=== PATIENT | male | born 1940 | race Caucasian/White ===

== ENCOUNTER 2017-01-05 15:07 | Inpatient (IN) | payer OTHER, MEDICARE ==
[~2017-01-05] VITALS: Ht 177.8 cm; Wt 88.0 kg
[2017-01-05 15:10] VITALS: BP 131/89; PULSE 113; RESP 18; TEMP 97.9; O2SAT 94
--- NOTE | 2017-01-05 15:27 | NUR ---
Patient to ER bed 4 to gown for evaluation. Side rails up. Report given to SHELBY HOPKINS.
--- NOTE | 2017-01-05 15:30 | NUR ---
Pt presents to ED c/o SOB h/o stent placement x 5 weeks ago.Pt released approximately 1 month ago.Pt h/o htn,hyperidemia,chf and afib.
[2017-01-05] MEDS ORDERED: METO25TA3 PO (15:32)
[2017-01-05] MEDS ORDERED: LOSA100T11 PO (15:32)
[2017-01-05] MEDS ORDERED: CELE200C PO (15:32)
[2017-01-05] MEDS ORDERED: ASPI-1063 PO (15:32)
[2017-01-05] MEDS ORDERED: LIP40 PO (15:32)
[2017-01-05] MEDS ORDERED: TRIA10.8 NS (15:32)
[2017-01-05] MEDS ORDERED: CLON0.5T4 PO (15:32)
[2017-01-05] MEDS ORDERED: WARF3TAB PO (15:32)
[2017-01-05] MEDS ORDERED: GABA-529 PO (15:32)
[2017-01-05] MEDS ORDERED: HYDR-1189 PO (15:32)
[2017-01-05] MEDS ORDERED: SENN-104 PO (15:32)
[2017-01-05] MEDS ORDERED: AMIO400T5 PO (15:32)
--- NOTE | 2017-01-05 15:32 | NUR ---
Medication reconciliation completed based upon list provided by patient.
--- NOTE | 2017-01-05 15:35 | NUR ---
# 20gauge angiocath placed to LFA. Use of asceptic technique. Opsite placed over site. Blood return noted. Flushed with 10 cc of normal saline. No evidence of infiltration noted. Patient tolerated well.
[2017-01-05] MEDS ORDERED: ALBUTEROL SULFATE 0.083% 2.5 MG/3 ML VIAL.NEB IH ONE (15:45)
[2017-01-05] MEDS ORDERED: ASPIRIN 325 MG TABLET PO ONE (15:45)
[2017-01-05] MEDS ORDERED: FUROSEMIDE 100 MG/10 ML VIAL IVP ONE (15:45)
[2017-01-05] MEDS ORDERED: IPRATROPIUM BROM 0.5 MG/2.5 ML VIAL.NEB (ATROVENT) IH ONE (15:45)
[2017-01-05 15:46] LABS: ANION GAP 5 (5-15); CHLORIDE 105 mmol/L (98-107); CREATININE 1.46 mg/dL (0.55-1.30); GLUCOSE 117 mg/dL (70-99); POTASSIUM 4.8 mmol/L (3.5-5.1); SODIUM SERUM 137 mmol/L (136-145); UREA NITROGEN, BLOOD 18 mg/dL (8-21)
[2017-01-05 15:52] LABS: BASOPHILS % (AUTO) 0.4 % (0.0-2.0); EOSINOPHILS # (AUTO) 0.2 K/uL (0.0-0.4); EOSINOPHILS % (AUTO) 2.3 % (0.0-4.0); HEMATOCRIT 31.8 % (36-54); HEMOGLOBIN 10.7 g/dL (14.0-18.0); LYMPHOCYTES # (AUTO) 1.2 K/uL (1.0-5.5); LYMPHOCYTES % (AUTO) 17.5 % (20.5-51.5); MEAN CORPUSCULAR HEMOGLOBIN 29 pg (27-31); MEAN CORPUSCULAR HGB CONC 34 % (32-36); MEAN CORPUSCULAR VOLUME 85 fL (79.0-98.0); MONOCYTES # (AUTO) 0.6 K/uL (0.0-1.0); MONOCYTES % (AUTO) 8.2 % (1.7-9.3); NEUTROPHILS # (AUTO) 4.8 K/uL (1.8-7.7); NEUTROPHILS % (AUTO) 71.6 % (40.0-70.0); PLATELET COUNT (AUTO) 180 K/uL (130-430); RED BLOOD CELL COUNT(AUTO) 3.76 MIL/uL (4.2-6.2); WHITE BLOOD COUNT (AUTO) 6.8 K/uL (4.8-10.8)
[2017-01-05 15:56] LABS: ALANINE AMINOTRANSFERASE 53 U/L (12-78); ALBUMIN 3.7 g/dL (3.4-4.8); ASPARTATE AMINOTRANSFERASE 34 U/L (10-37); TOTAL BILIRUBIN 0.9 mg/dL (0.0-1.0); TOTAL PROTEIN, SERUM 7.4 g/dL (6.4-8.3)
[2017-01-05 16:09] LABS: INR 2.9 (0.80-1.20); PROTHROMBIN TIME 32.4 SECS (9.5-12.5)
--- NOTE | 2017-01-05 16:27 | NUR ---
pt tolerated breathing tx well.Pt reports ease in resp effort.Marked improvement from prior to tx.
[2017-01-05] MEDS ORDERED: DILTIAZEM HCL 25 MG/5 ML VIAL IVP ONE (17:15)
--- NOTE | 2017-01-05 17:25 | NUR ---
pt medicated for tachycardia.Pt tolerated well.Continuing to monitor
--- NOTE | 2017-01-05 17:30 | NUR ---
Pt has approximately 800cc output after Lasix.
--- NOTE | 2017-01-05 17:45 | NUR ---
Spoke to Dr. Porras regarding stat consult.
--- NOTE | 2017-01-05 17:50 | NUR ---
Dr. Perez at bedside for evalaution.
--- NOTE | 2017-01-05 18:00 | NUR ---
Pt in sinus rhytm.NO resp distress noted.
--- NOTE | 2017-01-05 18:25 | NUR ---
Patient will be admitted to care of . Admitted to telemetry unit. Will go to room 135. Summary report printed. Report given to Admission RN.
--- NOTE | 2017-01-05 18:27 | NUR ---
ADMIT NOTE Received pt from ER to the floor with a diagnosis of CHF . Admission process initiated. patient oriented to pain management, safety and call light-teach back done.
[2017-01-05 18:36] VITALS: BP 123/80; PULSE 65; RESP 18; TEMP 98.8; O2SAT 94
[2017-01-05 19:00] VITALS: BP 104/69; PULSE 69; RESP 16; TEMP 97.7; O2SAT 98
--- NOTE | 2017-01-05 19:10 | NUR ---
closing notes pt sable.denies c/o of shortness of breath or chest pain. not in acute distress. at bed side. call light with in reach. report given to jarrod RYAN
--- NOTE | 2017-01-05 19:15 | NUR ---
change of shift.initial pt.assessment.pt.presents stable status.pt.is stable @room air no sob noted.iv access;lock.
--- NOTE | 2017-01-05 19:16 | NUR ---
CONSULTATION PAGED REASON FOR CONSULTATION:CARDIAC WAS CONSULT CALLED?Y PERSON WHO WAS NOTIFIED:JORDAN CONSULTING PHYSICIAN:LANDON TELLEZ CASH POSTER SPECIALTY:CARDIO CASH POSTER PHONE NUMBER:[phone]
[2017-01-05 20:00] VITALS: BP 104/69; PULSE 69; RESP 16; TEMP 97.7; O2SAT 98
--- NOTE | 2017-01-05 20:00 | NUR ---
pt.assessed.v/s assessed.values w/in normal limits.no pain,nausea manifested.pt.presents w/ c=pap apparatus from home: 2 f/u re;clearance.call light w/in pt;s each.i apprised pt.of the availability of snacks.pt.requested any items.call light w/in pt's reach.
[2017-01-05 20:12] VITALS: BP 123/80; PULSE 65
--- NOTE | 2017-01-05 20:58 | NUR ---
PAGED PAGED NASRA HUITRON AT [phone] SPOKE WITH DUY.
[2017-01-05] MEDS ORDERED: METOPROLOL SUCCINATE 25 MG TAB.SR.24H (TOPROL XL) PO STA (21:23)
[2017-01-05] MEDS ORDERED: METOPROLOL TARTRATE 25 MG TABLET PO ONE (21:30)
[2017-01-05] MEDS ORDERED: IPRATROPIUM/ALBUTEROL SULFATE 3 ML AMPUL.NEB INH PRN (21:30)
--- NOTE | 2017-01-05 22:00 | NUR ---
has assessed the pt.present upon the unit.lester hilliard is curently ordering pt's medications/c-pap. call light w/in pt's reach.
[2017-01-05] MEDS: HYDROcodone/ACETAMIN 5-325 MG TAB (NORCO/ VICODIN) PO PRN (22:19)
[2017-01-05] MEDS: GABAPENTIN 100 MG CAPSULE PO SCH (23:38)
[2017-01-06] VITALS (9 sets, daily range): BP systolic 110–135; BP diastolic 65–79; PULSE 62–137; RESP 16–18; TEMP 97.3–98.7; O2SAT 93–98
--- NOTE | 2017-01-06 | NUR ---
pt.assessed.pt.presents quiescent affect;calm,asleep.call light w/in pt's reach. Addendum: 01/06/17 at 0337 by Asad Flores RN v/s assessed.values w/in normal limits.
--- NOTE | 2017-01-06 02:00 | NUR ---
pt.assessed.pt.presents quiescent affect;calm,asleep.no distres/discomfort manifested. call light w/in pt's reach.
--- NOTE | 2017-01-06 04:00 | NUR ---
pt.assessed.v/s assessed.pt.presents stable status.no c/o pain,nausea.c-pap present. call light w/in pt's reach.
--- NOTE | 2017-01-06 06:00 | NUR ---
pt.assessed.pt.requesting medication;pain.norco reviewed:norco:45/325mg bid.i apprised the pt. pt.stated he requires the medication.pt.is due @1000am.i placed telephon call 2 .
--- NOTE | 2017-01-06 06:45 | NUR ---
returned the call.i apprised of the pt's request:pain medication.and the scheduled dose 4 the pt. bid. ordered norco:5/325mg:q-6hrs prn.i apprised the pt.of the recent order.
[2017-01-06 07:03] LABS: INR 2.7 (0.80-1.20)
[2017-01-06 07:15] LABS: BASOPHILS % (AUTO) 0.4 % (0.0-2.0); EOSINOPHILS # (AUTO) 0.4 K/uL (0.0-0.4); EOSINOPHILS % (AUTO) 6.5 % (0.0-4.0); HEMOGLOBIN 10.1 g/dL (14.0-18.0); LYMPHOCYTES # (AUTO) 1.4 K/uL (1.0-5.5); LYMPHOCYTES % (AUTO) 21.4 % (20.5-51.5); MEAN CORPUSCULAR HEMOGLOBIN 28 pg (27-31); MEAN CORPUSCULAR HGB CONC 34 % (32-36); MEAN CORPUSCULAR VOLUME 84 fL (79.0-98.0); MONOCYTES # (AUTO) 0.7 K/uL (0.0-1.0); MONOCYTES % (AUTO) 10.7 % (1.7-9.3); NEUTROPHILS # (AUTO) 3.9 K/uL (1.8-7.7); PLATELET COUNT (AUTO) 169 K/uL (130-430); RED BLOOD CELL COUNT(AUTO) 3.57 MIL/uL (4.2-6.2); RED CELL DISTRIBUTION WIDTH 16.2 % (9.0-15.0); WHITE BLOOD COUNT (AUTO) 6.4 K/uL (4.8-10.8)
[2017-01-06] MEDS: HYDROcodone/ACETAMIN 5-325 MG TAB (NORCO/ VICODIN) PO PRN ×3 (07:18→20:37)
[2017-01-06 07:20] LABS: PROTHROMBIN TIME 30.6 SECS (9.5-12.5)
[2017-01-06 07:28] LABS: ALANINE AMINOTRANSFERASE 45 U/L (12-78); ALBUMIN 3.3 g/dL (3.4-4.8); ANION GAP 9 (5-15); ASPARTATE AMINOTRANSFERASE 26 U/L (10-37); CHLORIDE 104 mmol/L (98-107); CREATININE 1.29 mg/dL (0.55-1.30); GLUCOSE 87 mg/dL (70-99); POTASSIUM 4.2 mmol/L (3.5-5.1); SODIUM SERUM 139 mmol/L (136-145); THYROID STIMULATING HORMONE 1.05 uIu/mL (0.34-4.82); TOTAL BILIRUBIN 0.9 mg/dL (0.0-1.0); TOTAL PROTEIN, SERUM 6.9 g/dL (6.4-8.3); UREA NITROGEN, BLOOD 15 mg/dL (8-21)
--- NOTE | 2017-01-06 07:30 | NUR ---
Initial Note Received pt in bed, no s/s of distress or sob noted, pt has no c/o pain at this time, pt in stable condition, pt aaox4, verbal. Bed at lowest position, call light within reach, will continue to monitor pt for any changes, fall precautions in place.
--- NOTE | 2017-01-06 07:30 | NUR ---
ROUNDS Dr Perez making her rounds, aware of patients condition. Per md Dr James to see pt due to increased heart rate and possible d/c today if cleared by him. Addendum: 01/06/17 at 0850 by Bibi Moreno RN note for 0830
[2017-01-06] MEDS: PANTOPRAZOLE SODIUM 40 MG TAB PO SCH (08:16)
[2017-01-06] MEDS: ATORVASTATIN 20 MG TABLET PO SCH (08:17)
[2017-01-06] MEDS: CELECOXIB 200 MG CAPSULE PO SCH (08:17)
[2017-01-06] MEDS: GABAPENTIN 100 MG CAPSULE PO SCH (08:17)
[2017-01-06] MEDS: SENNOSIDES/DOCUSATE SODIUM 1 TAB TABLET(SENOKOT-S) PO SCH (08:17)
[2017-01-06] MEDS: AMIODARONE HCL 200 MG TABLET PO SCH (08:19)
[2017-01-06] MEDS: ASPIRIN 81 MG TABLET(ECOTRIN) PO SCH (08:20)
[2017-01-06] MEDS: LOSARTAN POTASSIUM 50 MG TABLET (COZAAR) PO SCH (08:20)
--- NOTE | 2017-01-06 08:45 | NUR ---
MD ROUNDS Dr James making his rounds, aware of patients condition, spoke with md in regards to d/c due to high heart rate, md stated he will see pt.
[2017-01-06] MEDS ORDERED: clonazePAM 0.5 MG TABLET PO PRN (09:00)
[2017-01-06] MEDS ORDERED: CELECOXIB 200 MG CAPSULE PO SCH (09:00)
[2017-01-06] MEDS ORDERED: FUROSEMIDE 40 MG TABLET PO SCH (09:00)
[2017-01-06] MEDS ORDERED: METOPROLOL SUCCINATE 25 MG TAB.SR.24H (TOPROL XL) PO SCH ×2 (09:00)
[2017-01-06] MEDS ORDERED: clonazePAM 0.5 MG TABLET PO SCH (09:00)
[2017-01-06] MEDS ORDERED: FUROSEMIDE 20 MG/2 ML VIAL IVP ONE (09:15)
--- NOTE | 2017-01-06 09:45 | NUR ---
Suture Removal Removed three green string sutures on abd, all intact, no bleeding noted, noted scabbing on all three sites. Will continue to monitor pt for any changes.
--- NOTE | 2017-01-06 10:01 | NUR ---
Rounds Pt in bed, no s/s of distress or sob noted, pt has no c/o pain at this time, pt in stable condition, will continue to monitor pt for any changes, resting comfortably.
[2017-01-06] MEDS: WARFARIN SODIUM 3 MG TABLET PO SCH (18:00)
--- NOTE | 2017-01-06 18:26 | NUR ---
Closing Note Pt in bed, no s/s of distress or sob noted, pt has no c/o pain at this time, pt in stable condition, pt aaox4, verbal. Bed at lowest position, call light within reach, will endorse care of pt to incoming nurse, fall precautions in place.
--- NOTE | 2017-01-06 19:42 | NUR ---
Rounds Received patient sitting at the edge of the bed resting, denies of any pain, no acute distress noted. IV site checked intact and patent on saline lock. Instructed patient to call nurse when getting out of bed, call light within reach.
[2017-01-06] MEDS ORDERED: DOCUSATE SODIUM 250 MG CAPSULE PO ONE (20:30)
[2017-01-06] MEDS: CARVEDILOL 12.5 MG TABLET (COREG) PO SCH (20:33)
--- NOTE | 2017-01-06 22:19 | NUR ---
Rounds Patient resting and watching tv, pain medication given with effective result noted. call light within reach.
[2017-01-07] VITALS (7 sets, daily range): BP systolic 101–132; BP diastolic 65–78; PULSE 96–113; RESP 18–21; TEMP 96.4–98.3; O2SAT 96–97; Ht 177.8 cm; Wt 88.0 kg
--- NOTE | 2017-01-07 00:20 | NUR ---
Rounds Patient resting quietly, no s/s of any pain, no acute distress noted. call light within reach.
[2017-01-07] MEDS: HYDROcodone/ACETAMIN 5-325 MG TAB (NORCO/ VICODIN) PO PRN ×3 (05:40→22:23)
--- NOTE | 2017-01-07 07:29 | NUR ---
Closing notes Patient slept most of the night, no other changes noted on patient current condition.
[2017-01-07 07:30] LABS: INR 2.3 (0.80-1.20); PROTHROMBIN TIME 25.7 SECS (9.5-12.5)
[2017-01-07 07:33] LABS: ANION GAP 7 (5-15); CALCIUM 9.1 mg/dL (8.4-11.0); CHLORIDE 103 mmol/L (98-107); GLUCOSE 103 mg/dL (70-99); POTASSIUM 4.8 mmol/L (3.5-5.1); SODIUM SERUM 138 mmol/L (136-145); UREA NITROGEN, BLOOD 17 mg/dL (8-21)
--- NOTE | 2017-01-07 08:00 | NUR ---
Routine Patient sitting on side of bed, eating breakfast. No acute distress noted. Patient stable.
[2017-01-07] MEDS: ASPIRIN 81 MG TABLET(ECOTRIN) PO SCH (08:55)
[2017-01-07] MEDS: GABAPENTIN 100 MG CAPSULE PO SCH (08:56)
[2017-01-07] MEDS: ATORVASTATIN 20 MG TABLET PO SCH (08:56)
[2017-01-07] MEDS: CARVEDILOL 12.5 MG TABLET (COREG) PO SCH ×2 (08:56→20:45)
[2017-01-07] MEDS: SENNOSIDES/DOCUSATE SODIUM 1 TAB TABLET(SENOKOT-S) PO SCH (08:56)
[2017-01-07] MEDS: PANTOPRAZOLE SODIUM 40 MG TAB PO SCH (08:56)
[2017-01-07] MEDS: AMIODARONE HCL 200 MG TABLET PO SCH (08:57)
[2017-01-07] MEDS: LOSARTAN POTASSIUM 50 MG TABLET (COZAAR) PO SCH (08:58)
--- NOTE | 2017-01-07 09:00 | NUR ---
Routine Scheduled medications given per order. Patient sitting in bed with no acute distress. Patient stable at this time.
[2017-01-07] MEDS ORDERED: FUROSEMIDE 40 MG TABLET PO ONE (10:45)
--- NOTE | 2017-01-07 11:20 | NUR ---
Dr. Perez at bedside. Patient stable.
--- NOTE | 2017-01-07 12:20 | NUR ---
Routine Scheduled medications given per order. Patient resting in bed with no complaint of pain at this time. Patient stable.
[2017-01-07] MEDS: CELECOXIB 200 MG CAPSULE PO SCH (12:21)
[2017-01-07] MEDS ORDERED: CARVEDILOL 6.25 MG TABLET (COREG) PO ONE (12:30)
--- NOTE | 2017-01-07 13:47 | NUR ---
Routine Ordered med given. Patient resting comfortably in bed. Stable at this time.
--- NOTE | 2017-01-07 15:32 | NUR ---
Routine Patient complained of 5/10 pain in right upper extremity, hand and fingers. Due pain med given per order. Patient stable.
[2017-01-07] MEDS: WARFARIN SODIUM 3 MG TABLET PO SCH (18:50)
--- NOTE | 2017-01-07 18:50 | NUR ---
Routine Schedule med given per order. Patient resting comfortably in bed with at bedside. Patient stable throughout shift.
--- NOTE | 2017-01-07 19:35 | NUR ---
Initial Notes Pt is A/Ox4. Patient is pleasant and cooperative. Damaris is at bedside. Plan of care discussed with patient and at bedside, both verbalized understanding. Goal for the night discussed with pt and pt verbalized that he would like to get good sleep and to control his pain to his left arm. All scheduled medications discussed with pt and side effects as well. Pt denies any pain or sob at this time. Breathing is even and unlabored, lung sounds clear. IV intact. VSS. Dry scabs x3 noted to abdomen. Healed incision noted to mid upper chest. CPAP at bedside, pt stated he is able to place it on himself without assistance, pt encouraged to call for help as needed. Water replaced on CPAP for pt. Safety precautions in place, side rails up x2 with bed in lowest, locked position, bed alarm on, call light in hand. Pt educated [employer] storm[employer] leader light use and direct ext to reach the nurse. All needs met at this time. Call light in hand. Will continue to monitor.
--- NOTE | 2017-01-07 22:23 | NUR ---
Pain Management Pt c/o right arm pain 02/25 and requested [place]. Pt medicated with [place] 5-325mg 1 tab as ordered for moderate pain. No acute distress noted. Side effects discussed with pt and encouraged to call as needed. Call light in hand. Will continue to monitor.
[2017-01-08] VITALS (8 sets, daily range): BP systolic 92–114; BP diastolic 16–96; PULSE 107–118; RESP 12–18; TEMP 97.1–98; O2SAT 93–95
--- NOTE | 2017-01-08 00:36 | NUR ---
Rounds Pt is sleeping comfortably at this time. No acute distress or sob noted. VSS. Call light in reach. Will continue to monitor.
--- NOTE | 2017-01-08 02:30 | NUR ---
PATIENT RESTING: Patient resting quietly. No acute distress noted. Vital signs within normal range.
[2017-01-08] MEDS: HYDROcodone/ACETAMIN 5-325 MG TAB (NORCO/ VICODIN) PO PRN ×2 (04:29→11:53)
--- NOTE | 2017-01-08 04:29 | NUR ---
Pain Management Pt c/o right arm pain 01/26. Pt requested pain medication. Pt medicated with [place] 5-325mg 1 tab as ordered for moderate pain. Pt is up and walking. Walked with pt around the nurses station with steady gait noted. No acute distress noted. Pt back in room safely. All needs met at this time. Call light within reach. Will continue to monitor.
--- NOTE | 2017-01-08 07:08 | NUR ---
Closing Notes Pt is awake, reading his book. Pt denies any pain or discomfort at this time. VSS. IV intact. Breathing is even unlabored. All needs met throughout shift. Pt in stable condition. All needs met throughout shift. Will endorse care to am nurse. Call light in hand. Will continue to monitor.
[2017-01-08 07:24] LABS: INR 2.1 (0.80-1.20); PROTHROMBIN TIME 23.5 SECS (9.5-12.5)
--- NOTE | 2017-01-08 07:30 | NUR ---
INITIAL ROUNDS Received pt AAOx4, no s/s resp distress, no c/o SOB, no c/o pain or discomfort. Plan of care for the day reviewed with pt-pt verbalized his understanding. Pt ambulatory with steady gait. Pain management, disease process, skin and safety discussed-teach back done. Contact phone number explained, call light within reach.
[2017-01-08] MEDS: GABAPENTIN 100 MG CAPSULE PO SCH (08:34)
[2017-01-08] MEDS: ATORVASTATIN 20 MG TABLET PO SCH (08:35)
[2017-01-08] MEDS: ASPIRIN 81 MG TABLET(ECOTRIN) PO SCH (08:35)
[2017-01-08] MEDS: SENNOSIDES/DOCUSATE SODIUM 1 TAB TABLET(SENOKOT-S) PO SCH (08:35)
[2017-01-08] MEDS: PANTOPRAZOLE SODIUM 40 MG TAB PO SCH (08:35)
[2017-01-08] MEDS: CELECOXIB 200 MG CAPSULE PO SCH (08:36)
[2017-01-08] MEDS: AMIODARONE HCL 200 MG TABLET PO SCH (08:37)
[2017-01-08] MEDS: LOSARTAN POTASSIUM 50 MG TABLET (COZAAR) PO SCH (08:37)
[2017-01-08] MEDS: CARVEDILOL 12.5 MG TABLET (COREG) PO SCH (08:38)
[2017-01-08] MEDS ORDERED: FUROSEMIDE 40 MG TABLET PO SCH (09:00)
--- NOTE | 2017-01-08 10:40 | NUR ---
ROUNDS Pt sitting up in bed visiting with his , no c/o SOB, no no c/o pain or discomfort. Pt seen by Dr. James. Call light within reach.
--- NOTE | 2017-01-08 12:51 | NUR ---
ROUNDS/PAIN Pt resting quietly in bed with no further c/o pain or discomfort. Needs met, call light within reach.
--- NOTE | 2017-01-08 15:22 | NUR ---
PATIENT DISCHARGED Patient given medication reconciliation form and D/C instructions. Exit Care on CHF explained & provided. Patient verbalized his understanding. MD discussed with patient the results and treatment provided. Ambulatory with steady gait for discharge to home. Patient in stable condition, ID band removed. IV catheter removed, intact and dressing applied, no active bleeding. Rx of Coreg given. Patient educated on pain management. All belongings sent with patient. Patient left floor ambulatory to private vehicle in no distress.
--- NOTE | 2017-01-19 15:02 | NUR ---
Discharge Follow Up Phone Calls: Coagulating Bath Operator called and left a voice mail for pt ([phone]) on 01/15/17. CONSTRUCTION JOB COST ESTIMATOR called and spoke with pt today. Pt states that he is doing well; pt's prescriptions have been filled; there are no questions regarding discharge or medication instructions; pt has already attended follow up appointment with PCP; pt is weighing himself daily. Pt did not express any other needs or concerns and denied the need for additional follow up at this time. No further follow up phone calls required at this time.
== END 2017-01-08 15:22 | disposition home or self-care (01) | DRG 291 ==
LOC: SED 15:07 → STU 17:40
PROVIDERS: ADMIT Internal Medicine; ATTEND Internal Medicine
PROC: 5A09457 Assistance with Respiratory Ventilation, 24-96 Consecutive Hours, Continuous Positive Airway Pressure (ICD-10-PCS; principal; 2017-01-06)
DX: I13.0 Hypertensive heart and chronic kidney disease with heart failure and stage 1 through stage 4 chronic kidney disease, or unspecified chronic kidney disease (principal); I50.41 Acute combined systolic (congestive) and diastolic (congestive) heart failure; C34.90 Malignant neoplasm of unspecified part of unspecified bronchus or lung; N17.9 Acute kidney failure, unspecified; I48.2 Chronic atrial fibrillation; G47.30 Sleep apnea, unspecified; N18.9 Chronic kidney disease, unspecified; I34.0 Nonrheumatic mitral (valve) insufficiency; Z79.01 Long term (current) use of anticoagulants; Z87.891 Personal history of nicotine dependence; Z90.2 Acquired absence of lung [part of]; Z95.2 Presence of prosthetic heart valve; Z95.3 Presence of xenogenic heart valve; Z88.0 Allergy status to penicillin; Z79.82 Long term (current) use of aspirin; Z79.899 Other long term (current) drug therapy
CPT/HCPCS: 36415; 71010; 80048; 80053; 83880; 84443-TC; 84484; 85025; 85610-TC; 85730-TC; 93005; 93306; 94640; 94760; 96374; 96375; 99285; J1940; J3490

== ENCOUNTER 2017-09-02 10:12 | Day surgery (SDC) | payer OTHER, MEDICARE ==
[2017-08-31 09:49] LABS: BASOPHILS # (AUTO) 0.1 K/uL (0.0-0.2); BASOPHILS % (AUTO) 1.2 % (0.0-2.0); BILIRUBIN,URINE NEGATIVE (NEGATIVE); BLOOD, URINE NEGATIVE (NEGATIVE); CLARITY/URINE CLEAR (CLEAR); COLOR,URINE YELLOW (YELLOW); EOSINOPHILS # (AUTO) 0.4 K/uL (0.0-0.4); EOSINOPHILS % (AUTO) 5.7 % (0.0-4.0); GLUCOSE,URINE NEGATIVE (NEGATIVE); HEMATOCRIT 35.9 % (36-54); HEMOGLOBIN 11.8 g/dL (14.0-18.0); KETONES,URINE NEGATIVE (NEGATIVE); LEUKOCYTE ESTERASE ,URINE NEGATIVE (NEGATIVE); LYMPHOCYTES % (AUTO) 13.9 % (20.5-51.5); MEAN CORPUSCULAR HEMOGLOBIN 28 pg (27-31); MEAN CORPUSCULAR HGB CONC 33 % (32-36); MEAN CORPUSCULAR VOLUME 84 fL (79.0-98.0); MONOCYTES # (AUTO) 0.7 K/uL (0.0-1.0); MONOCYTES % (AUTO) 10.2 % (1.7-9.3); NEUTROPHILS # (AUTO) 4.9 K/uL (1.8-7.7); NITRITE, URINE NEGATIVE (NEGATIVE); PH,URINE 5.5 (5.0-8.0); PLATELET COUNT (AUTO) 205 K/uL (130-430); PROTEIN URINE NEGATIVE (NEGATIVE); RED BLOOD CELL COUNT(AUTO) 4.26 MIL/uL (4.2-6.2); RED CELL DISTRIBUTION WIDTH 16.5 % (9.0-15.0); UROBILINOGEN,URINE 0.2 (0.2-1.0); WHITE BLOOD COUNT (AUTO) 7.1 K/uL (4.8-10.8)
[2017-08-31 10:07] LABS: ANION GAP 5 (5-15); CALCIUM 8.4 mg/dL (8.4-11.0); CHLORIDE 102 mmol/L (98-107); GLUCOSE 114 mg/dL (70-99); POTASSIUM 5.2 mmol/L (3.5-5.1); SODIUM SERUM 135 mmol/L (136-145); UREA NITROGEN, BLOOD 23 mg/dL (8-21)
[2017-08-31 10:12] LABS: INR 1.2 (0.80-1.20); PROTHROMBIN TIME 12.1 SECS (9.5-12.5)
[~2017-09-02] VITALS: Ht 180.3 cm; Wt 84.4 kg
[~2017-09-02 10:12] MED LIST: AMIO400T5 PO; ASPI-1063 PO; CELE200C PO; CLON0.5T4 PO; GABA-529 PO; HYDR-1189 PO; LIP40 PO; LOSA100T11 PO; SENN-104 PO; WARF3TAB PO
[2017-09-02] MEDS ORDERED: LIDOCAINE MPF 0.5% 250 MG/50 ML VIAL INJ ONE (10:13)
[2017-09-02] MEDS ORDERED: SODIUM BICARBONATE 4% (NEUT) 5 ML VIAL INJ ONE (10:13)
[2017-09-02] MEDS ORDERED: BUPIVACAINE /PF 0.25% 30 ML VIAL INJ ONE (10:13)
[2017-09-02] MEDS ORDERED: CLINDAMYCIN PHOSPHATE 900 mg/50mL D5W IV ONE (10:13)
[2017-09-02] MEDS ORDERED: GENTAMICIN 80 mg/ NS 100 mL IVPB IV ONE (10:13)
[2017-09-02] MEDS ORDERED: LR 1,000 ML IV.SOLN IV ONE (10:13)
[2017-09-02] MEDS ORDERED: NS IRRIG SOLN 1000 ML IR ONE (10:13)
[2017-09-02] MEDS ORDERED: LevALBUTEROL HCL 1.25 MG/0.5 ML *CONC.* VIAL.NEB (XOPENEX CONC.) INH ONE ×2 (11:15→11:25)
[2017-09-02] MEDS ORDERED: CLINDAMYCIN 900 mg/50mL D5W 50 ML IV ONE (11:55)
[2017-09-02] MEDS ORDERED: CLINDAMYCIN PHOS 900 MG/ D5W 50 ML PREMIX IV ONE (11:55)
[2017-09-02] MEDS ORDERED: LR 1,000 ML IV SCH (11:56)
[2017-09-02] MEDS ORDERED: HYDROmorphone 1 MG INJ. 1 MG/ML AMPUL IVP PRN (12:00)
[2017-09-02] MEDS ORDERED: MEPERIDINE HCL/PF 25 MG/ML DISP.SYRIN IVP PRN (12:00)
[2017-09-02] MEDS ORDERED: HYDROmorphone 2 MG/ML VIAL IVP PRN ×2 (12:00)
[2017-09-02 15:32] VITALS: BP_SYST 111
== END 2017-09-02 14:40 | disposition home or self-care (01) ==
LOC: SDS 10:12 → SMU 10:13 → SDS 14:40
PROVIDERS: ATTEND Orthopaedic Surgery
DX: G56.01 Carpal tunnel syndrome, right upper limb (principal); Z85.118 Personal history of other malignant neoplasm of bronchus and lung; I10 Essential (primary) hypertension; J44.9 Chronic obstructive pulmonary disease, unspecified; I11.0 Hypertensive heart disease with heart failure; E78.5 Hyperlipidemia, unspecified; Z88.0 Allergy status to penicillin
CPT/HCPCS: 36415; 64721; 71010; 80048; 81003; 85025; 85610; 85730; 94640; 94760; J3490; J1580; J2001; J7120

== ENCOUNTER 2024-03-17 05:01 | Inpatient (IN) | payer OTHER, MEDICARE ==
[~2024-03-17] VITALS: Ht 175.3 cm; Wt 61.2 kg
[~2024-03-17 05:01] MED LIST changes: -ASPI-1063 PO; +ASPI-1393 PO; -HYDR-1189 PO; +HYDR-3919 PO; +LOSA-415 PO; -LOSA100T11 PO; -SENN-104 PO; +SENN-295 PO
[2024-03-17 05:12] VITALS: BP_SYST 99; PULSE 89; RESP 22; TEMP 97; O2SAT 97
[2024-03-17] MEDS ORDERED: DIGO125T PO (05:35)
[2024-03-17] MEDS ORDERED: MONT-40 PO (05:35)
[2024-03-17] MEDS ORDERED: METO50TA7 PO (05:35)
[2024-03-17] MEDS ORDERED: ENOX100D4 SQ (05:35)
[2024-03-17] MEDS ORDERED: DILT90TA2 PO (05:35)
[2024-03-17] MEDS ORDERED: SACU1TAB PO (05:35)
[2024-03-17] MEDS ORDERED: HYDR-3917 PO (05:35)
[2024-03-17] MEDS ORDERED: FINA-37 PO (05:35)
[2024-03-17] MEDS ORDERED: CLON0.5T4 PO (05:35)
[2024-03-17] MEDS ORDERED: OMEP20TA20 PO (05:35)
[2024-03-17] MEDS ORDERED: FURO-149 PO (05:35)
[2024-03-17] MEDS ORDERED: PRED10TA PO (05:35)
[2024-03-17] MEDS ORDERED: ROSU10TA2 PO (05:35)
[2024-03-17 05:49] LABS: BASOPHILS % (AUTO) 0.4 % (0.0-2.0); EOSINOPHILS # (AUTO) 0.1 K/uL (0.0-0.4); EOSINOPHILS % (AUTO) 0.8 % (0.0-4.0); HEMATOCRIT 34.5 % (36-54); HEMOGLOBIN 11.5 g/dL (14.0-18.0); LYMPHOCYTES # (AUTO) 0.6 K/uL (1.0-5.5); LYMPHOCYTES % (AUTO) 5.8 % (20.5-51.5); MEAN CORPUSCULAR HEMOGLOBIN 29 pg (27-31); MEAN CORPUSCULAR HGB CONC 34 % (32-36); MEAN CORPUSCULAR VOLUME 87 fL (79.0-98.0); MONOCYTES # (AUTO) 0.9 K/uL (0.0-1.0); MONOCYTES % (AUTO) 9.2 % (1.7-9.3); NEUTROPHILS # (AUTO) 8.4 K/uL (1.8-7.7); NEUTROPHILS % (AUTO) 83.8 % (40.0-70.0); PLATELET COUNT (AUTO) 227 K/uL (130-430); RED BLOOD CELL COUNT(AUTO) 3.95 MIL/uL (4.2-6.2); RED CELL DISTRIBUTION WIDTH 15.7 % (9.0-15.0)
[2024-03-17 06:06] LABS: ALANINE AMINOTRANSFERASE 13 U/L (12-78); ALBUMIN 2.5 g/dL (3.4-4.8); ANION GAP 7 (5-15); ASPARTATE AMINOTRANSFERASE 11 U/L (10-37); CALCIUM 8.7 mg/dL (8.4-11.0); CARBON DIOXIDE 33 mmol/L (23-29); CHLORIDE 97 mmol/L (98-107); CREATININE 1.29 mg/dL (0.55-1.30); GLUCOSE 126 mg/dL (74-106); POTASSIUM 4.7 mmol/L (3.5-5.1); SODIUM SERUM 137 mmol/L (136-145); TOTAL BILIRUBIN 0.9 mg/dL (0.0-1.0); TOTAL PROTEIN, SERUM 6.9 g/dL (6.4-8.3); UREA NITROGEN, BLOOD 24 mg/dL (8-21)
[2024-03-17 06:09] LABS: BILIRUBIN,DIRECT 0.4 mg/dL (0.0-0.3)
[2024-03-17] MEDS: cefTRIAXone 1 GM IVPB PREMIX 50 ML IV ONE (06:35)
[2024-03-17] MEDS ORDERED: AZITHROMYCIN 500 MG/VIAL (ZITHROMAX) IV ONE (08:05)
[2024-03-17] MEDS: AZITHROMYCIN 500 MG in NS 250 ML IV ONE (08:20)
[2024-03-17 11:01] LABS: INR 1.1 (0.80-1.20); PROTHROMBIN TIME 10.9 SECS (9.5-12.5)
[2024-03-17 12:24] VITALS: BP_SYST 96; PULSE 89; RESP 18; TEMP 98.6; O2SAT 97
[2024-03-17 16:00] VITALS: BP_SYST 95; PULSE 95; RESP 14; TEMP 98.6; O2SAT 97
[2024-03-17] MEDS ORDERED: ONDANSETRON HCL 4 MG/2 ML VIAL IVP PRN (19:45)
[2024-03-17] MEDS ORDERED: *LOVENOX 1MG/KG Q24H/PHARMACY XX ONE (19:45)
[2024-03-17] MEDS ORDERED: LORazepam 2 MG/ML VIAL IVP PRN (19:45)
[2024-03-17] MEDS ORDERED: ACETAMINOPHEN 325 MG TABLET PO PRN (19:45)
[2024-03-17] MEDS ORDERED: NALOXONE HCL 0.4 MG/ML AMP (NARCAN) IVP PRN ×2 (19:45)
[2024-03-17] MEDS ORDERED: HYDROcodone/ACETAMIN 10-325 MG TAB PO PRN (19:45)
[2024-03-17 20:00] VITALS: BP_SYST 99; PULSE 71; RESP 18; TEMP 97.9; O2SAT 96
[2024-03-17 20:30] VITALS: BP_SYST 99; PULSE 71; RESP 18; TEMP 97.9; O2SAT 96
[2024-03-17 21:10] VITALS: BP_SYST 95; PULSE 95; O2SAT 96
[2024-03-17] MEDS: HYDROcodone/ACETAMIN 5-325 MG TAB (NORCO/ VICODIN) PO PRN (21:21)
[2024-03-17] MEDS: ENOXAPARIN SODIUM 40 MG/0.4 ML SYRINGE SUBCUT SCH (21:21)
[2024-03-17] MEDS: ATORVASTATIN 20 MG TABLET PO SCH (21:21)
[2024-03-17] MEDS: SACUBITRIL/VALSARTAN 24 MG-26 MG 1 TABLET PO SCH (21:24)
[2024-03-17] MEDS: NORMAL SALINE 5 ML DISP.SYRIN IVF SCH (22:00)
[2024-03-18] VITALS (10 sets, daily range): BP systolic 92–136; PULSE 65–132; RESP 16–18; TEMP 96.9–98.2; O2SAT 93–99
[2024-03-18 08:00] LABS: BASOPHILS % (AUTO) 0.3 % (0.0-2.0); EOSINOPHILS % (AUTO) 0.5 % (0.0-4.0); HEMATOCRIT 33.3 % (36-54); LYMPHOCYTES # (AUTO) 0.4 K/uL (1.0-5.5); LYMPHOCYTES % (AUTO) 3.9 % (20.5-51.5); MEAN CORPUSCULAR HEMOGLOBIN 29 pg (27-31); MEAN CORPUSCULAR HGB CONC 33 % (32-36); MEAN CORPUSCULAR VOLUME 87 fL (79.0-98.0); MONOCYTES % (AUTO) 9.6 % (1.7-9.3); NEUTROPHILS # (AUTO) 8.8 K/uL (1.8-7.7); NEUTROPHILS % (AUTO) 85.7 % (40.0-70.0); PLATELET COUNT (AUTO) 208 K/uL (130-430); RED BLOOD CELL COUNT(AUTO) 3.82 MIL/uL (4.2-6.2); RED CELL DISTRIBUTION WIDTH 15.4 % (9.0-15.0); WHITE BLOOD COUNT (AUTO) 10.3 K/uL (4.8-10.8)
[2024-03-18 08:11] LABS: ALANINE AMINOTRANSFERASE 11 U/L (12-78); ANION GAP 5 (5-15); ASPARTATE AMINOTRANSFERASE 17 U/L (10-37); CALCIUM 8.3 mg/dL (8.4-11.0); CARBON DIOXIDE 31 mmol/L (23-29); CHLORIDE 100 mmol/L (98-107); CREATININE 0.92 mg/dL (0.55-1.30); GLUCOSE 99 mg/dL (74-106); POTASSIUM 4.7 mmol/L (3.5-5.1); SODIUM SERUM 136 mmol/L (136-145); TOTAL BILIRUBIN 0.5 mg/dL (0.0-1.0); UREA NITROGEN, BLOOD 20 mg/dL (8-21)
[2024-03-18] MEDS: DILTIAZEM HCL 90 MG TABLET PO SCH (08:23)
[2024-03-18] MEDS: CELECOXIB 200 MG CAPSULE PO SCH (08:23)
[2024-03-18] MEDS: FUROSEMIDE 40 MG TABLET PO SCH (08:23)
[2024-03-18] MEDS: AMIODARONE HCL 200 MG TABLET PO SCH (08:24)
[2024-03-18] MEDS: ASPIRIN 81 MG TABLET(ECOTRIN) PO SCH (08:24)
[2024-03-18] MEDS: DIGOXIN 0.125 MG TABLET PO SCH (08:24)
[2024-03-18] MEDS: SENNOSIDES/DOCUSATE SODIUM 1 TAB TABLET(SENOKOT-S) PO SCH (08:25)
[2024-03-18] MEDS: PANTOPRAZOLE SODIUM 40 MG TAB PO SCH (08:25)
[2024-03-18] MEDS: METOPROLOL SUCCINATE 50 MG TAB.SR.24H (TOPROL XL) PO SCH (08:25)
[2024-03-18] MEDS: FINASTERIDE 5 MG TABLET (PROSCAR) PO SCH (08:25)
[2024-03-18] MEDS ORDERED: NON-FORMULARY MEDICATION (Losartan Potassium (Cozaar) 100 MG) PO SCH (09:00)
[2024-03-18] MEDS ORDERED: clonazePAM 0.5 MG TABLET PO PRN (09:00)
[2024-03-18] MEDS: AZITHROMYCIN 500 MG in NS 250 ML IV SCH (10:59)
[2024-03-18] MEDS: ALBUTEROL SULFATE 0.083% 2.5 MG/3 ML VIAL.NEB INH PRN (18:25)
[2024-03-18] MEDS: IPRATROPIUM BROM 0.5 MG/2.5 ML VIAL.NEB (ATROVENT) INH PRN (18:25)
[2024-03-18] MEDS: MONTELUKAST 10 MG TABLET PO SCH (18:43)
[2024-03-18] MEDS: CALCIUM GLUC 2 GM/100ML-NACL 100 ML IV ONE (18:43)
[2024-03-18] MEDS: GABAPENTIN 100 MG CAPSULE PO SCH (21:35)
[2024-03-18] MEDS: ACETAMINOPHEN 325 MG TABLET PO PRN (23:31)
[2024-03-19] VITALS (8 sets, daily range): BP systolic 95–141; PULSE 65–144; RESP 16–20; TEMP 97.1–99.6; O2SAT 97–100
[2024-03-19 05:33] LABS: BASOPHILS % (AUTO) 0.3 % (0.0-2.0); EOSINOPHILS # (AUTO) 0.1 K/uL (0.0-0.4); EOSINOPHILS % (AUTO) 1.4 % (0.0-4.0); HEMATOCRIT 29.6 % (36-54); LYMPHOCYTES # (AUTO) 0.5 K/uL (1.0-5.5); LYMPHOCYTES % (AUTO) 5.2 % (20.5-51.5); MEAN CORPUSCULAR HEMOGLOBIN 29 pg (27-31); MEAN CORPUSCULAR HGB CONC 34 % (32-36); MEAN CORPUSCULAR VOLUME 86 fL (79.0-98.0); MONOCYTES # (AUTO) 0.9 K/uL (0.0-1.0); MONOCYTES % (AUTO) 10.4 % (1.7-9.3); NEUTROPHILS # (AUTO) 7.3 K/uL (1.8-7.7); NEUTROPHILS % (AUTO) 82.7 % (40.0-70.0); PLATELET COUNT (AUTO) 211 K/uL (130-430); RED BLOOD CELL COUNT(AUTO) 3.43 MIL/uL (4.2-6.2); RED CELL DISTRIBUTION WIDTH 15.3 % (9.0-15.0); WHITE BLOOD COUNT (AUTO) 8.8 K/uL (4.8-10.8)
[2024-03-19 05:37] LABS: ERYTHROCYTE SEDIMENTATION RATE 53 MM/HR (0-15)
[2024-03-19 05:41] LABS: ANION GAP 4 (5-15); CALCIUM 8.5 mg/dL (8.4-11.0); CARBON DIOXIDE 32 mmol/L (23-29); CHLORIDE 100 mmol/L (98-107); CREATININE 1.03 mg/dL (0.55-1.30); GLUCOSE 97 mg/dL (74-106); POTASSIUM 4.4 mmol/L (3.5-5.1); SODIUM SERUM 136 mmol/L (136-145); UREA NITROGEN, BLOOD 18 mg/dL (8-21)
[2024-03-19] MEDS: guaiFENesin/DEXTROMETHORPHAN 10 ML UDC PO PRN (10:23)
[2024-03-19] MEDS ORDERED: DOXY100C5 PO ×2 (16:53→17:15)
== END 2024-03-19 17:50 | disposition home health service (06) | DRG 871 ==
LOC: SED 05:01 → STU 06:42
PROVIDERS: ADMIT Preventive Medicine Preventive Medicine/Occupational Environmental Medicine; ATTEND Preventive Medicine Preventive Medicine/Occupational Environmental Medicine
DX: A41.9 Sepsis, unspecified organism (principal); E43 Unspecified severe protein-calorie malnutrition; J69.0 Pneumonitis due to inhalation of food and vomit; J18.9 Pneumonia, unspecified organism; I21.4 Non-ST elevation (NSTEMI) myocardial infarction; Z68.1 Body mass index [BMI] 19.9 or less, adult; I10 Essential (primary) hypertension; E78.5 Hyperlipidemia, unspecified; N40.0 Benign prostatic hyperplasia without lower urinary tract symptoms; K21.9 Gastro-esophageal reflux disease without esophagitis; K59.00 Constipation, unspecified; I25.10 Atherosclerotic heart disease of native coronary artery without angina pectoris; E83.51 Hypocalcemia; D64.9 Anemia, unspecified; W01.0XXD Fall on same level from slipping, tripping and stumbling without subsequent striking against object, subsequent encounter; I48.91 Unspecified atrial fibrillation; E88.09 Other disorders of plasma-protein metabolism, not elsewhere classified; Z95.1 Presence of aortocoronary bypass graft; Z79.01 Long term (current) use of anticoagulants; Z79.899 Other long term (current) drug therapy; Y93.89 Activity, other specified; Y92.89 Other specified places as the place of occurrence of the external cause; Y99.8 Other external cause status
CPT/HCPCS: 36415; 70450-TC; 71045; 80048; 80053; 80076; 83605; 83735; 83880; 84100; 84484; 85025; 85610; 85651; 86738; 87040; 93005; 93306; 94640; 94760; 96365; 96367; 97110-GP; 97116-GP; 97530-GP; 99285; G0378; J0456; J0696; J1650; J7050; J7060